=== PATIENT | female | born 1950 | race Caucasian/White ===

== ENCOUNTER 2017-11-04 10:31 | Observation (INO) | payer MEDICARE ==
[2017-11-04] VITALS (10 sets, daily range): BP systolic 103–141; BP diastolic 59–71; PULSE 73–87; RESP 16–20; TEMP 97.8–98.5; O2SAT 95–97
[~2017-11-04] VITALS: Ht 152.4 cm; Wt 80.3 kg
[~2017-11-04 10:31] MED LIST: AGGR20025 PO; ASPI81 PO; CALCCHW25 PO; CELE200 PO; CLON1 PO; CULT10CA2 PO; DENO60P SC; DEXI30CA2 PO; EFFE150C PO; EPIP0.3I IM; METF-324 PO; MIRA0.12 PO; MONT10TA2 PO; OMEG1CAP53 PO; PERC5TAB12 PO; PREG100 PO; QUIN20 PO; RELP40TA PO; RESV100C PO; SIMV5TAB32 PO; SUPETAB PO
--- NOTE | 2017-11-04 11:55 | PD ---
HPI Chief Complaint: Musculoskeletal Complaint Time Seen by Provider: 11:47 Travel History International Travel<30 days: No Contact w/Intl Traveler<30days: No Traveled to known affect area: No History of Present Illness HPI Patient is a 67-year-old female history of bus trip to [place] recently presents emergency department with calf pain isolated to the posterior lateral calf on the right. Patient denies any swelling. Denies any injury. She states that they did get out. The rest area walked around some she is worried that she might have a blood clot. She has a secondary complaint of cough productive of green sputum for the past few days. No shortness of breath not on any blood thinners no nausea no vomiting. She has never had any blood clots before. Patient has a tertiary complaint of chest discomfort and tightness which she states is been going on for the past day or so. States it worsens when she moves, radiates in her left arm she has a history of diabetes. She has not tried anything for her pain. symptoms for the past 2 days, constant, associated signs and symptoms in context as above/. 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") Headaches: Yes Hepatitis: No Hiatal Hernia: No Hypertension: Yes Kidney Stones: Yes Musculoskeletal: Yes (COMPRESSION FRACTURES X3, RIGHT ROTATOR CUFF) Respiratory: Yes (SLEEP APNEA/ C-PAP, ASTHMA) Migraines: Yes Pneumonia: Yes Sleep Apnea: Yes Thyroid Disease: No ?: Not Menopausal: Yes : 0 Para: 0 Miscarriage: 0 : 0 Ovarian Cysts: Yes ("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") Past Surgical History Abdominal Surgery: Yes (hernia) Appendectomy: Yes Cholecystectomy: Yes Eye Surgery: Yes (cataract, DETACHED RETINA RIGHT EYE) Oral Surgery: Yes (T & A) Pacemaker: No Tonsillectomy: Yes Other Surgery: Yes (UMBILICAL HERNIA) Social History Alcohol Use: No Tobacco Use: No Substance Use: No Allergies-Medications (Allergen,Severity, Reaction): Coded Allergies: diatrizoate meglumine (Unverified Adverse Reaction, Severe, FACIAL SWELLING, 11/04/17) PATIENT HAS TO BE PREMEDICATED WITH PREDNISONE AND BENADRYL gadobenic acid (Unverified Adverse Reaction, Severe, FACIAL SWELLING, ) PATIENT HAS TO BE PREMEDICATED WITH PREDNISONE AND BENADRYL gadodiamide (Unverified Adverse Reaction, Severe, FACIAL SWELLING, 11/04/17) PATIENT HAS TO BE PREMEDICATED WITH PREDNISONE AND BENADRYL gadoteridol (Unverified Adverse Reaction, Severe, FACIAL SWELLING, 11/04/17) PATIENT HAS TO BE PREMEDICATED WITH PREDNISONE AND BENADRYL iodixanol (Unverified Adverse Reaction, Severe, FACIAL SWELLING, 11/04/17) PATIENT HAS TO BE PREMEDICATED WITH PREDNISONE AND BENADRYL iohexol (Unverified Adverse Reaction, Severe, FACIAL SWELLING, 11/04/17) PATIENT HAS TO BE PREMEDICATED WITH PREDNISONE AND BENADRYL levofloxacin (Unverified Adverse Reaction, Severe, SEVERE FLUSHING, 11/04/17 ) Reported Meds & Prescriptions Reported Meds & Active Scripts Active Reported Oxycodone (Oxycodone HCl) 5 Mg Cap 5 Mg PO Q6H PRN Vitamin B Complex (B-Complex Vitamins) 1 Tab 1 Tab PO DAILY Lipitor (Atorvastatin Calcium) 40 Mg Tab 40 Mg PO HS Quinapril (Quinapril HCl) 5 Mg Tab 20 Mg PO BID Plavix (Clopidogrel Bisulfate) 75 Mg Tab 75 Mg PO DAILY Metformin (Metformin HCl) 500 Mg Tab 500 Mg PO BIDPC Mirapex (Pramipexole Dihydrochloride) 0.25 Mg Tab 0.25 Mg PO BID PRN Review of Systems Except as stated in HPI: all other systems reviewed are Neg Physical Exam Narrative GENERAL: Well-developed well-nourished in obvious distress SKIN: Focused skin assessment warm/dry. HEAD: Atraumatic. Normocephalic. EYES: Pupils equal and round. No scleral icterus. No injection or drainage. ENT: No nasal bleeding or discharge. Mucous membranes pink and moist. TMs clear bilaterally, oropharynx clear moist NECK: Trachea midline. No JVD. CARDIOVASCULAR: Regular rate and rhythm. No murmur appreciated. RESPIRATORY: No accessory muscle use. Clear to auscultation. Breath sounds equal bilaterally. GASTROINTESTINAL: Abdomen soft, non-tender, nondistended. Hepatic and splenic margins not palpable. MUSCULOSKELETAL: No obvious deformities. No clubbing. No cyanosis. No edema. I see no swelling of bilateral lower extremities, no cordlike structure, Homans sign negative. She does have some minimal tenderness over the area described in the HPI. See no bruising no bony tenderness. 2+ bilateral pulses in all 4 extremities. NEUROLOGICAL: Awake and alert. No obvious cranial nerve deficits. Motor grossly within normal limits. Normal speech. PSYCHIATRIC: Appropriate mood and affect; insight and judgment normal. Data Data Last Documented VS Vital Signs Date Time Temp Pulse Resp B/P (MAP) Pulse Ox O2 Delivery O2 Flow Rate FiO2 11/04/17 14:03 83 18 117/59 (78) 96 Room Air 11/04/17 10:50 98.5 Orders Orders Basic Metabolic Panel (Bmp) (11/04/17 11:52) Complete Blood Count With Diff (11/04/17 11:52) Prothrombin Time / Inr (Pt) (11/04/17 11:52) Act Partial Throm Time (Ptt) (11/04/17 11:52) Chest, Single Ap (11/04/17 11:52) Ecg Monitoring (11/04/17 11:52) Iv Access Insert/Monitor (11/04/17 11:52) Oximetry (11/04/17 11:52) Oxygen Administration (11/04/17 11:52) Sodium Chloride 0.9% Flush (Ns Flush) (11/04/17 12:00) Us Leg Venous Doppler (11/04/17 11:52) Ibuprofen (Motrin) (11/04/17 12:00) Electrocardiogram (11/04/17 ) Nitroglycerin Sl (Nitrostat Sl) (11/04/17 13:00) Aspirin Chew (Aspirin Chew) (11/04/17 13:00) Troponin I (11/04/17 13:04) Admit Order (Ed Use Only) (11/04/17 ) Labs Laboratory Tests Test 11/04/17 12:10 11/04/17 12:15 Troponin I LESS THAN 0.02 NG/ML White Blood Count 6.5 TH/MM3 Red Blood Count 3.79 MIL/MM3 Hemoglobin 10.6 GM/DL Hematocrit 31.6 % Mean Corpuscular Volume 83.4 FL Mean Corpuscular Hemoglobin 28.0 PG Mean Corpuscular Hemoglobin Concent 33.6 % Red Cell Distribution Width 16.3 % Platelet Count 341 TH/MM3 Mean Platelet Volume 7.2 FL Neutrophils (%) (Auto) 62.0 % Lymphocytes (%) (Auto) 18.2 % Monocytes (%) (Auto) 13.1 % Eosinophils (%) (Auto) 6.0 % Basophils (%) (Auto) 0.7 % Neutrophils # (Auto) 4.0 TH/MM3 Lymphocytes # (Auto) 1.2 TH/MM3 Monocytes # (Auto) 0.9 TH/MM3 Eosinophils # (Auto) 0.4 TH/MM3 Basophils # (Auto) 0.0 TH/MM3 CBC Comment DIFF FINAL Differential Comment Prothrombin Time 9.8 SEC Prothromb Time International Ratio 1.0 RATIO Activated Partial Thromboplast Time 24.1 SEC Blood Urea Nitrogen 16 MG/DL Creatinine 1.00 MG/DL Random Glucose 94 MG/DL Calcium Level 9.4 MG/DL Sodium Level 139 MEQ/L Potassium Level 4.3 MEQ/L Chloride Level 107 MEQ/L Carbon Dioxide Level 26.3 MEQ/L Anion Gap 6 MEQ/L Estimat Glomerular Filtration Rate 56 ML/MIN [facility] Medical Decision Making Medical Screen Exam Complete: Yes Emergency Medical Condition: Yes Differential Diagnosis DVT, PE unlikely, ACS unlikely, ND, cough, congestion. Narrative Course Patient room to the emergency department with multiple complaints, DVT study negative, basic labs reassuring, EKG and troponin reassuring as well. Patient does have risk factors for ACS and has no credit products officer or to follow-up with. She has never had a stress test before. Discussed with her that she should consider staying to have a cardiac observation done even though she is atypical presentation and she is agreeable. Discussed with Dr. Rizvi for chest pain center admission further workup per Dr. Rizvi's recommendations. After excluded from cardiac standpoint can be discharged to follow-up with a primary care physician or the [facility]. Diagnosis Primary Impression: Chest pain Admitting Information Admitting Physician Requests: Observation Condition: Stable Phong Cheema MD Nov 04, 2017 11:55
[2017-11-04] MEDS ORDERED: SODIUM CHLORIDE 0.9% FLUSH 10 ML FLUSH IVF PRN (12:00)
[2017-11-04] MEDS ORDERED: IBUPROFEN 400 MG TAB PO ONE (12:00)
--- NOTE | 2017-11-04 12:09 | RADRPT ---
EXAM DATE/TIME: 11/04/2017 11:59 [facility] COMPARISON: No previous studies available for comparison. INDICATIONS : Cough, short of breath, chest pain MEDICAL HISTORY : Diabetes mellitus type II. Hypertension SURGICAL HISTORY : None. ENCOUNTER: Initial ACUITY: 4 - 6 days PAIN SCORE: 4/10 LOCATION: Bilateral chest FINDINGS: Cardiomegaly with mild interstitial edema. There is no other consolidation. There is no pleural eff usion. The portion of the bony skeleton visualized is unremarkable. CONCLUSION: Cardiomegaly with probable mild failure Caesar Jacobs MD FACR on November 04, 2017 at 12:08 Board Certified Radiologist. This report was verified electronically.
[2017-11-04] MEDS ORDERED: QUIN5TAB6 PO (12:10)
[2017-11-04] MEDS ORDERED: PLAV75TA29 PO (12:10)
[2017-11-04] MEDS ORDERED: MIRA0.25 PO (12:10)
[2017-11-04] MEDS ORDERED: METF500T PO (12:10)
[2017-11-04 12:28] LABS: BASOPHIL % 0.7 % (0.0-2.0); EOSINOPHIL # 0.4 TH/MM3 (0-0.4); HEMATOCRIT 31.6 % (35.0-46.0); HEMOGLOBIN 10.6 GM/DL (11.6-15.3); LYMPH % 18.2 % (9.0-44.0); LYMPHOCYTE # 1.2 TH/MM3 (1.0-4.8); MEAN CELL VOLUME 83.4 FL (80.0-100.0); MEAN CORPUSCULAR HGB CONC 33.6 % (32.0-36.0); MEAN PLATELET VOLUME 7.2 FL (7.0-11.0); MONO % 13.1 % (0.0-8.0); MONOCYTE # 0.9 TH/MM3 (0-0.9); PLATELET COUNT 341 TH/MM3 (150-450); RED BLOOD COUNT 3.79 MIL/MM3 (4.00-5.30); RED CELL DISTRIBUTION WIDTH 16.3 % (11.6-17.2); WHITE BLOOD COUNT 6.5 TH/MM3 (4.0-11.0)
[2017-11-04] MEDS ORDERED: VITATAB11 PO (12:30)
[2017-11-04] MEDS ORDERED: LIPI40TA PO (12:30)
[2017-11-04] MEDS ORDERED: OXYC1CAP PO (12:30)
[2017-11-04 12:40] LABS: CALCIUM 9.4 MG/DL (8.5-10.1); PROTHROMBIN TIME - PATIENT 9.8 SEC (9.8-11.6)
--- NOTE | 2017-11-04 12:40 | RADRPT ---
EXAM DATE/TIME: 11/04/2017 12:18 [facility] COMPARISON: No previous studies available for comparison. INDICATIONS : Right leg swelling. MEDICAL HISTORY : Stroke. Hypercholesterolemia. Hypertension. Anticoagulant therapy. Asthma. Sleep apnea. Gastroesop hageal reflux disorder. Ovarian cysts. Kidney stones. Fibromyalgia. Depression. Anxiety. Diabetes. SURGICAL HISTORY : Tonsillectomy. Appendectomy. Cholecystectomy. Bilateral cataract surgery. Cardiac catheterization. U mbilical hernia repair. ENCOUNTER: Initial ACUITY: 4 - 6 days PAIN SCORE: 4/10 LOCATION: Right leg. TECHNIQUE: Venous ultrasound of the leg was performed from the inguinal ligament to the proximal calf. Real-kelsea e, color Doppler and spectral tracing, compression and augmentation techniques were used. FINDINGS: There is normal compressibility of the deep venous system from the inguinal region to the proximal ca lf. No echogenic clot is seen in the lumen of the common femoral, femoral, popliteal, and posterior tibial veins. There is a normal response of the venous system to proximal and distal augmentation an d respiration. CONCLUSION: Normal examination. Michael Rios MD on November 04, 2017 at 12:39 Board Certified Radiologist. This report was verified electronically.
[2017-11-04 12:41] LABS: BICARBONATE 26.3 MEQ/L (21.0-32.0)
[2017-11-04] MEDS ORDERED: NITROGLYCERIN 0.4 MG SL 25 TABS/BTL SL ONE (13:00)
[2017-11-04] MEDS ORDERED: ASPIRIN 81 MG CHEW TAB CHEW ONE (13:00)
[2017-11-04] MEDS ORDERED: IOHEXOL 350 MG/ML 50 ML BTL (for Cath Lab) OTHER ONE (14:29)
[2017-11-04] MEDS ORDERED: DEXTROSE 50% IN WATER 50 ML VIAL(D50) IV PUSH PRN (14:30)
[2017-11-04] MEDS ORDERED: GLUCAGON 1 MG/ML VIAL OTHER PRN (14:30)
[2017-11-04] MEDS ORDERED: NITROGLYCERIN 0.4 MG SL 25 TABS/BTL SL PRN (14:30)
[2017-11-04] MEDS ORDERED: SODIUM CHLORIDE 0.9% FLUSH 10 ML FLUSH IV FLUSH PRN (14:30)
[2017-11-04] MEDS ORDERED: MORPHINE SULFATE 4 MG/ML INJ IV PUSH PRN (15:00)
[2017-11-04] MEDS ORDERED: ONDANSETRON HCL 4 MG/2 ML VIAL IV PUSH PRN (15:00)
--- NOTE | 2017-11-04 15:11 | HHI.HP ---
HPI Service [facility] Primary Care Physician Radha Posada DO Admission Diagnosis Chest Pain Diagnoses: (1) Chest pain Diagnosis: Principal (2) Claudication Diagnosis: Principal Chief Complaint: Chest pain, calf pain Travel History International Travel<30 Days: No Contact w/Intl Traveler <30 Da: No Traveled to Known Affected Are: No History of Present Illness 67-year-old female with known history of hypertension, irregular heart rate, hyperlipidemia, diabetes, compression fractures, who presented to hospital with multiple symptoms. She states that for the last week she's been experiencing at least 2 times a day a chest heaviness which she describes as a 5 /10 on a pain scale. It happens at rest and during exertion. And resolved on its own after a couple minutes. There is associated shortness of breath, dyspnea, diaphoresis, lightheadedness. Patient denies any nausea, vomiting, dizziness. Patient does have history of cardiac workup 10 years ago where she did undergo a stress test. She has not had any workup recently. Patient also was experiencing right calf pain whenever she is standing up and walking. When she sits down the pain does go away. Ultrasound performed which was unremarkable. Patient also admits experiencing cough with green phlegm production over the last day. Denies any fever, chills, runny nose, sore throat. Patient had workup done emergency department and was unremarkable. Is recommended by the ER physician that the patient be observed in the chest pain center for her chest discomfort. This was explained to the patient and she is in agreement. Review of Systems Constitutional: COMPLAINS OF: Diaphoretic episodes, Dizziness Respiratory: COMPLAINS OF: Shortness of breath Cardiovascular: COMPLAINS OF: Chest pain, Claudication Except as stated in HPI: all other systems reviewed are Neg Past Family Social History Past Medical History Hypertension Hyperlipidemia Diabetes type 2 Irregular heart rate Compression fractures Neuroma History of right detached retina Obstructive sleep apnea Past Surgical History Cholecystectomy Umbilical hernia. Tonsillectomy Cataract surgery Right rotator cuff surgery Reported Medications Reported Meds & Active Scripts Active Reported Oxycodone (Oxycodone HCl) 5 Mg Cap 5 Mg PO Q6H PRN Vitamin B Complex (B-Complex Vitamins) 1 Tab 1 Tab PO DAILY Lipitor (Atorvastatin Calcium) 40 Mg Tab 40 Mg PO HS Quinapril (Quinapril HCl) 5 Mg Tab 20 Mg PO BID Plavix (Clopidogrel Bisulfate) 75 Mg Tab 75 Mg PO DAILY Metformin (Metformin HCl) 500 Mg Tab 500 Mg PO BIDPC Mirapex (Pramipexole Dihydrochloride) 0.25 Mg Tab 0.25 Mg PO BID PRN Allergies: Coded Allergies: diatrizoate meglumine (Unverified Adverse Reaction, Severe, FACIAL SWELLING, 11/04/17) PATIENT HAS TO BE PREMEDICATED WITH PREDNISONE AND BENADRYL gadobenic acid (Unverified Adverse Reaction, Severe, FACIAL SWELLING, ) PATIENT HAS TO BE PREMEDICATED WITH PREDNISONE AND BENADRYL gadodiamide (Unverified Adverse Reaction, Severe, FACIAL SWELLING, 11/04/17) PATIENT HAS TO BE PREMEDICATED WITH PREDNISONE AND BENADRYL gadoteridol (Unverified Adverse Reaction, Severe, FACIAL SWELLING, 11/04/17) PATIENT HAS TO BE PREMEDICATED WITH PREDNISONE AND BENADRYL iodixanol (Unverified Adverse Reaction, Severe, FACIAL SWELLING, 11/04/17) PATIENT HAS TO BE PREMEDICATED WITH PREDNISONE AND BENADRYL iohexol (Unverified Adverse Reaction, Severe, FACIAL SWELLING, 11/04/17) PATIENT HAS TO BE PREMEDICATED WITH PREDNISONE AND BENADRYL levofloxacin (Unverified Adverse Reaction, Severe, SEVERE FLUSHING, 11/04/17 ) Family History Reviewed is significant for father at age 76 from heart attack. Mother at age 89 in generally good health Social History Patient denies any tobacco or illicit drugs. Does drink alcohol rarely Physical Exam Vital Signs Vital Signs Date Time Temp Pulse Resp B/P (MAP) Pulse Ox O2 Delivery O2 Flow Rate FiO2 11/04/17 14:03 83 18 117/59 (78) 96 Room Air 11/04/17 11:56 96 Room Air 11/04/17 11:56 Room Air 11/04/17 10:50 98.5 83 16 133/64 (87) 97 Physical Exam GENERAL: Well-developed, well-nourished, in no acute distress. alert and orientated HEENT: Head is normocephalic without any lesions or masses noted. Facial features are symmetric. Eyes: Pupils equal round reactive to light. Extraocular muscles are intact. Conjunctivae were clear. Oropharyngeal: Pharynx without any erythema edema. Tongue is midline without deviation. Buccal mucosa is moist without any masses or lesions NECK: Supple without any masses. Trachea midline no deviation. No JVD, no bruits are appreciated CARDIAC: Regular rhythm, regular rate. S1/S2 are heard. No murmurs gallops or rubs. LUNGS: Clear to auscultation bilaterally. No wheeze, rhonchi or rales. No use of accessory muscles on inspiration or expiration. ABDOMEN: Soft, nontender. Nondistended. Bowel sounds heard in all 4 quadrants. No organomegaly or masses. Negative rebound, negative guarding EXTREMITIES: No edema, pulses are equal bilaterally. No cyanosis or clubbing NEUROLOGY: Mood and affect appear appropriate. Cranial nerves II through XII grossly intact. Muscle strength 5/5 in upper and lower extremities bilaterally. Deep tendon reflexes are 2+ in upper and lower extremities bilaterally. Laboratory Laboratory Tests Test 11/04/17 12:10 11/04/17 12:15 Troponin I LESS THAN 0.02 White Blood Count 6.5 Red Blood Count 3.79 Hemoglobin 10.6 Hematocrit 31.6 Mean Corpuscular Volume 83.4 Mean Corpuscular Hemoglobin 28.0 Mean Corpuscular Hemoglobin Concent 33.6 Red Cell Distribution Width 16.3 Platelet Count 341 Mean Platelet Volume 7.2 Neutrophils (%) (Auto) 62.0 Lymphocytes (%) (Auto) 18.2 Monocytes (%) (Auto) 13.1 Eosinophils (%) (Auto) 6.0 Basophils (%) (Auto) 0.7 Neutrophils # (Auto) 4.0 Lymphocytes # (Auto) 1.2 Monocytes # (Auto) 0.9 Eosinophils # (Auto) 0.4 Basophils # (Auto) 0.0 CBC Comment DIFF FINAL Differential Comment Prothrombin Time 9.8 Prothromb Time International Ratio 1.0 Activated Partial Thromboplast Time 24.1 Blood Urea Nitrogen 16 Creatinine 1.00 Random Glucose 94 Calcium Level 9.4 Sodium Level 139 Potassium Level 4.3 Chloride Level 107 Carbon Dioxide Level 26.3 Anion Gap 6 Estimat Glomerular Filtration Rate 56 Result Diagram: 11/04/17 1215 11/04/17 1215 Imaging Last Impressions Lower Extremity Ultrasound 11/04/17 1152 Signed Impressions: Service Date/Time: Saturday, November 04, 2017 12:18 - CONCLUSION: Normal examination. Michael Rios MD Chest X-Ray 11/04/17 115 Signed Impressions: Service Date/Time: Saturday, November 04, 2017 11:59 - CONCLUSION: Cardiomegaly with probable mild failure Caesar Jacobs MD FACR Caprini VTE Risk Assessment Caprini VTE Risk Assessment: Mod/High Risk (score >= 2) Caprini Risk Assessment Model Point Value = 1 Point Value = 2 Point Value = 3 Point Value = 5 Age 41-60 Minor surgery BMI > 25 kg/m2 Swollen legs Varicose veins or History of unexplained or recurrent spontaneous Oral contraceptives or hormone replacement Sepsis (< 1 month) Serious lung disease, including pneumonia (< 1 month) Abnormal pulmonary function Acute myocardial infarction Congestive heart failure (< 1 month) History of inflammatory bowel disease Medical patient at bed rest Age 61-74 Arthroscopic surgery Major open surgery (> 45 min) Laparoscopic surgery (> 45 min) Malignancy Confined to bed (> 72 hours) Immobilizing plaster cast Central venous access Age >= 75 History of VTE Family history of VTE Factor V Leiden Prothrombin [id number] Lupus anticoagulant Anticardiolipin antibodies Elevated serum homocysteine Heparin-induced thrombocytopenia Other congenital or acquired thrombophilia Stroke (< 1 month) Elective arthroplasty Hip, pelvis, or leg fracture Acute spinal cord injury (< 1 month) Prophylaxis Regimen Total Risk Factor Score Risk Level Prophylaxis Regimen 0-1 Low Early ambulation 2 Moderate Order ONE of the following: *Sequential Compression Device (SCD) *Heparin 5000 units SQ BID 3-4 Higher Order ONE of the following medications: *Heparin 5000 units SQ TID *Enoxaparin/Lovenox 40 mg SQ daily (WT < 150 kg, CrCl > 30 mL/min) *Enoxaparin/Lovenox 30 mg SQ daily (WT < 150 kg, CrCl > 10-29 mL/min) *Enoxaparin/Lovenox 30 mg SQ BID (WT < 150 kg, CrCl > 30 mL/min) AND/OR *Sequential Compression Device (SCD) 5 or more Highest Order ONE of the following medications: *Heparin 5000 units SQ TID (Preferred with Epidurals) *Enoxaparin/Lovenox 40 mg SQ daily (WT < 150 kg, CrCl > 30 mL/min) *Enoxaparin/Lovenox 30 mg SQ daily (WT < 150 kg, CrCl > 10-29 mL/min) *Enoxaparin/Lovenox 30 mg SQ BID (WT < 150 kg, CrCl > 30 mL/min) AND *Sequential Compression Device (SCD) Assessment and Plan Assessment and Plan 67-year-old female who presented to hospital with a one-week history of 2 times a day chest discomfort with associated shortness of breath, diaphoresis, lightheadedness, claudication Chest pain Patient with increased risk factors to include age, hypertension, hyperlipidemia, diabetes, family history of heart disease Will rule patient out for acute coronary event with serial cardiac enzymes which are negative at this time We'll continue to do serial EKGs which have been reviewed so far and does not indicate any acute abnormality or ST elevations Will pursue myocardial perfusion test in the morning if patient ruled out for acute coronary event We'll continue aspirin, nitroglycerin as needed, pain control Continue to monitor telemetry Calf pain, possible claudication Worse with ambulation, resolved with rest Ultrasound does not indicate any acute abnormality or DVT Diabetes Accu-Cheks with sliding scale insulin Hypertension, hyperlipidemia Continue home medications DVT prevention Subcutaneous heparin Branden Bashir Nov 04, 2017 15:11
[2017-11-04] MEDS: INSULIN ASPART SUPPLEMENTAL SCALE SQ SCH ×2 (17:00→22:23)
[2017-11-04 18:02] LABS: TROPONIN I LESS THAN 0.02 NG/ML (0.02-0.05)
[2017-11-04] MEDS ORDERED: PRAMIPEXOLE DIHYDROCHLORIDE 0.25 MG TAB PO PRN (21:00)
[2017-11-04] MEDS: ATORVASTATIN 40 MG TAB PO SCH (22:18)
[2017-11-04] MEDS: SODIUM CHLORIDE 0.9% FLUSH 10 ML FLUSH IV FLUSH SCH (22:18)
[2017-11-04] MEDS: HEPARIN SODIUM - SQ 10,000 UNITS/ML VIAL SQ SCH (22:19)
[2017-11-04] MEDS: LISINOPRIL 20 MG TAB PO SCH (22:40)
[2017-11-04] MEDS: ACETAMINOPHEN 500 MG CPLT PO PRN (23:03)
[2017-11-05] VITALS (8 sets, daily range): BP systolic 113–145; BP diastolic 56–87; PULSE 72–84; RESP 16–20; TEMP 97.1–98.1; O2SAT 94–98
[2017-11-05] MEDS: INSULIN ASPART SUPPLEMENTAL SCALE SQ SCH ×4 (08:00→20:00)
[2017-11-05] MEDS: HEPARIN SODIUM - SQ 10,000 UNITS/ML VIAL SQ SCH ×2 (08:49→19:58)
[2017-11-05] MEDS: CLOPIDOGREL 75 MG TAB PO SCH (08:49)
[2017-11-05] MEDS: ASPIRIN 325 MG TAB PO SCH (08:49)
[2017-11-05] MEDS: SODIUM CHLORIDE 0.9% FLUSH 10 ML FLUSH IV FLUSH SCH ×2 (08:49→20:00)
[2017-11-05] MEDS: LISINOPRIL 20 MG TAB PO SCH ×2 (08:49→19:59)
--- NOTE | 2017-11-05 10:53 | RADRPT ---
EXAM DATE/TIME: 11/05/2017 08:55 [facility] COMPARISON: No previous studies available for comparison. INDICATIONS : Chest pain radiating to the left arm. Angina. DOSE: 27.1 mCi Tc99m Myoview at stress. 8.8 mCi Tc99m Myoview at rest. 0.4 mg Lexiscan STRESS SYMPTOMS: Chest pain and dyspnea. EJECTION FRACTION: 53% MEDICAL HISTORY : Diabetes mellitus type 2. Hypercholesterolemia. Gastroesophageal reflux disease. Hypertension. Stroke . SURGICAL HISTORY : Appendectomy. Tonsillectomy. Umbilical hernia repair. ENCOUNTER: Initial ACUITY: 2 days PAIN SCALE: 3/10 LOCATION: chest TECHNIQUE: The patient underwent pharmacologic stress with infusion of prescribed dose. Continuous ECG tracing was monitored during stress. Gated SPECT imaging was performed after stress and conventional SPECT i maging was performed at rest. The examination was performed on a SPECT/CT scanner, both attenuation and non-corrected datasets were reviewed. FINDINGS: On the stress images the best perfused myocardium is the anterior lateral wall followed by the inferi or wall There is minimal redistribution in the high septal region extending towards the base. There is no fi xed defect to suggest infarction. Wall motion is normal across all regions. CONCLUSION: Minimal redistribution, borderline significant high septal region suggestive of ischemia. RISK CATEGORY: Low (<1% Annual Mortality Rate) Caesar Jacobs MD FACR on November 05, 2017 at 10:49 Board Certified Radiologist. This report was verified electronically.
--- NOTE | 2017-11-05 11:21 | HHI.PR ---
Subjective Remarks Patient seen and examined today for follow-up on chest pain. Patient has undergone nuclear stress test which was positive for signs of redistribution and ischemia. This was discussed with the patient extensively. Patient will require cardiology consult. Patient denies any recurrent chest discomfort or shortness of breath. Objective Vitals Vital Signs Date Time Temp Pulse Resp B/P (MAP) Pulse Ox O2 Delivery O2 Flow Rate FiO2 11/05/17 08:00 80 11/05/17 08:00 98.1 72 18 113/56 (75) 94 11/05/17 04:27 97.6 73 16 117/58 (77) 96 11/05/17 00:04 97.6 77 18 141/87 (105) 95 11/04/17 20:30 95 21 11/04/17 20:18 97.9 75 16 114/71 (85) 97 11/04/17 20:05 80 11/04/17 16:18 96 21 11/04/17 16:07 87 11/04/17 16:00 97.8 73 20 141/67 (91) 97 11/04/17 15:49 82 96 11/04/17 15:20 78 19 123/62 (82) 95 Room Air 11/04/17 14:45 84 18 103/64 (77) 95 Room Air 11/04/17 14:03 83 18 117/59 (78) 96 Room Air 11/04/17 11:56 96 Room Air 11/04/17 11:56 Room Air I/O 11/04/17 11/04/17 11/04/17 11/05/17 11/05/17 11/05/17 07:00 15:00 23:00 07:00 15:00 23:00 Intake Total 120 ml Output Total 200 ml 1900 ml Balance -80 ml -1900 ml Intake Oral 120 ml Output Urine Total 200 ml 1900 ml # Bowel Movements 0 0 Result Diagram: 11/04/17 1215 11/04/17 1215 Imaging Last Impressions Lower Extremity Ultrasound 11/04/17 1152 Signed Impressions: Service Date/Time: Saturday, November 04, 2017 12:18 - CONCLUSION: Normal examination. Michael Rios MD Chest X-Ray 11/04/17 1153 Signed Impressions: Service Date/Time: Saturday, November 04, 2017 11:59 - CONCLUSION: Cardiomegaly with probable mild failure Caesar Jacobs MD FACR Objective Remarks GENERAL: Well-developed, well-nourished, in no acute distress. alert and orientated HEENT: Head is normocephalic without any lesions or masses noted. Facial features are symmetric. Eyes: Extraocular muscles are intact. Conjunctivae were clear. NECK: Supple without any masses. Trachea midline no deviation. No JVD, CARDIAC: Regular rhythm, regular rate. S1/S2 are heard. No murmurs gallops or rubs. LUNGS: Clear to auscultation bilaterally. No wheeze, rhonchi or rales. No use of accessory muscles on inspiration or expiration. ABDOMEN: Soft, nontender. Nondistended. Bowel sounds heard in all 4 quadrants. No organomegaly or masses. Negative rebound, negative guarding EXTREMITIES: No edema, pulses are equal bilaterally. No cyanosis or clubbing NEUROLOGY: Mood and affect appear appropriate. Cranial nerves II through XII grossly intact. Moving all extremities, speech is clear Urinary Catheter: No Vascular Central Line Catheter: No A/P Assessment and Plan 67-year-old female who presented to hospital with a one-week history of 2 times a day chest discomfort with associated shortness of breath, diaphoresis, lightheadedness, claudication Chest pain Patient with increased risk factors to include age, hypertension, hyperlipidemia, diabetes, family history of heart disease Patient was ruled out for acute coronary event with serial cardiac enzymes have remained negative. Serial EKGs were performed which did not indicate any changes Myocardial perfusion study was performed which did show minimal redistribution defects with possible ischemia Continue aspirin, Plavix, nitroglycerin as needed, pain control Add beta-lashell, Nitropaste, defer heparin to market sales manager Consult cardiology for recommendations Continue to monitor telemetry Calf pain, possible claudication Worse with ambulation, resolved with rest Ultrasound does not indicate any acute abnormality or DVT Diabetes Accu-Cheks with sliding scale insulin Hypertension, hyperlipidemia Continue home medications DVT prevention Subcutaneous heparin Branden Bashir Nov 05, 2017 11:21
[2017-11-05] MEDS: NITROGLYCERIN 2% OINT 1 GM PACKET TOPICAL SCH ×2 (13:19→18:00)
[2017-11-05] MEDS: CARVEDILOL 3.125 MG TAB PO SCH ×2 (13:23→19:59)
[2017-11-05] MEDS: ACETAMINOPHEN 500 MG CPLT PO PRN ×2 (13:23→19:59)
[2017-11-05] MEDS ORDERED: REGADENOSON INJ 0.4 MG/5 ML SYR IV ONE (14:29)
--- NOTE | 2017-11-05 16:16 | MB ---
cc: Greg Polk MD DATE OF CONSULT: REASON FOR CONSULTATION: Chest pain. HISTORY OF PRESENT ILLNESS: The patient is a 67-year-old woman who sees my partner, Dr. Crook, for a fairly long history of atypical chest pain with a normal cardiac catheterization about 8 years ago and nonischemic stress test several years ago. Patient says she has had chest pain and shortness of breath for about a year, progressing to the point where she felt she needed to be evaluated. Of note, the patient is extremely agitated. As I walk in, she immediately begins telling me how dissatisfied she is with the staff, nursing, and she feels like she is getting mixed messages. I tried my hardest to explain the situation to the patient, yet she remained dissatisfied with any explanation I had. I discussed that I had reviewed all of the patient's charting from the office as well as her results from in the hospital, but the patient was not particularly interested in my opinion. Though I did explain that I think given the normal catheterization in the past with nonischemic nuclear stress testing since, combined with her only minimally abnormal stress test, she would likely be a good candidate for a trial of medical therapy. The patient was not receptive to this advice or discussion. PAST MEDICAL HISTORY: Atypical chest pain, normal cardiac catheterization approximately 2008, hypertension, hyperlipidemia, obesity. HOME MEDICATIONS: Include Lipitor, quinapril, Plavix, metformin. ALLERGIES: MULTIPLE. PLEASE SEE THE CHART. PHYSICAL EXAMINATION: Afebrile, pulse of 76, respiratory rate 18, BP 137/67, satting 95% on 2 L. GENERAL: Agitated obese woman who did become more receptive to discussion towards the end of our encounter. NECK: No JVD. LUNGS: Clear to auscultation bilaterally. CARDIOVASCULAR: Regular rate and rhythm, no murmurs appreciated. ABDOMEN: Benign. EXTREMITIES: No edema. LABORATORY DATA: White count 6.5, hematocrit 31.6, platelet 341. Sodium 139, potassium 4.3, chloride 107, bicarb 26.3, BUN 16, creatinine 1.0. Cardiac enzymes are negative x 2. EKG shows sinus rhythm, with no significant ST or T-wave changes, but there are nonspecific lateral changes. Chest x-ray showed possible mild cardiomegaly. Nuclear stress test showed minimal redistribution, borderline significant in the high septal region. IMPRESSIONS: Atypical chest pain. The patient has had off and on chest pain for a year and likely much longer than that, given my review of the chart. She has a family history of coronary disease, and she said her dad of a massive myocardial infarction, which seems to weight heavily on her mind frequently. I did discuss a trial of medical therapy given the fairly unimpressive nuclear stress test reading, but she is clearly uncomfortable going home without a definitive look at her coronary arteries, so I feel I have no choice but to recommend a cardiac catheterization. I will make the necessary arrangements and one of my partners will plan for this tomorrow. Thank you, again, for the opportunity to participate in this patient's care. MD DONNA Piper/MONTY , 03:54 PM , 04:15 PM
[2017-11-05] MEDS: ATORVASTATIN 40 MG TAB PO SCH (19:59)
[2017-11-06] VITALS (25 sets, daily range): BP systolic 112–145; BP diastolic 54–76; PULSE 64–86; RESP 16–18; TEMP 97.6–98.8; O2SAT 96–98
[2017-11-06] MEDS: NITROGLYCERIN 2% OINT 1 GM PACKET TOPICAL SCH ×5 (00:21→23:43)
[2017-11-06] MEDS ORDERED: SODIUM CHLOR 0.9% 1000 ML INJ 1,000 ML IV SCH (07:29)
[2017-11-06] MEDS ORDERED: diphenhydrAMINE HCL 50 MG CAP PO SCH ×2 (07:30→13:00)
[2017-11-06] MEDS ORDERED: ASPIRIN 325 MG TAB PO SCH ×2 (07:30→13:00)
[2017-11-06] MEDS ORDERED: DIAZEPAM 5 MG TAB PO SCH ×2 (07:30→13:00)
[2017-11-06] MEDS: INSULIN ASPART SUPPLEMENTAL SCALE SQ SCH ×4 (08:00→21:35)
[2017-11-06] MEDS: LISINOPRIL 20 MG TAB PO SCH ×2 (09:55→21:35)
[2017-11-06] MEDS: ASPIRIN 325 MG TAB PO SCH (09:55)
[2017-11-06] MEDS: CARVEDILOL 3.125 MG TAB PO SCH ×2 (09:56→21:34)
[2017-11-06] MEDS: CLOPIDOGREL 75 MG TAB PO SCH (09:56)
[2017-11-06] MEDS: HEPARIN SODIUM - SQ 10,000 UNITS/ML VIAL SQ SCH ×2 (09:56→21:35)
[2017-11-06] MEDS: SODIUM CHLORIDE 0.9% FLUSH 10 ML FLUSH IV FLUSH SCH ×2 (09:57→21:34)
[2017-11-06] MEDS ORDERED: predniSONE 20 MG TAB PO ONE ×2 (13:00→22:00)
--- NOTE | 2017-11-06 13:10 | PD.CARD.PN ---
Subjective Subjective Remarks Last chest pain Sunday Objective Medications Current Medications Medications (Trade) Dose Ordered Sig/Kassie Route Start Time Stop Time Status Last Admin (NS Flush) 2 ml UNSCH PRN IV FLUSH 11/04/17 14:30 (NS Flush) 2 ml BID IV FLUSH 11/04/17 21:00 11/06/17 09:57 (Tylenol) 500 mg Q4H PRN PO 11/04/17 15:00 11/05/17 19:59 (Morphine Inj) 2 mg Q4H PRN IV PUSH 11/04/17 15:00 (Zofran Inj) 4 mg Q6H PRN IV PUSH 11/04/17 15:00 (Nitrostat Sl) 0.4 mg Q5M PRN SL 11/04/17 14:30 (Aspirin) 325 mg DAILY PO 11/05/17 09:00 11/06/17 09:55 (Lipitor) 40 mg HS PO 11/04/17 21:00 11/05/17 19:59 (Plavix) 75 mg DAILY PO 11/05/17 09:00 11/06/17 09:56 (Roxicodone) 5 mg Q6HR PRN PO 11/04/17 18:00 (Mirapex) 0.25 mg BID PRN PO 11/04/17 21:00 (Prinivil) 20 mg BID PO 11/04/17 21:00 11/06/17 09:55 (D50w (Vial) Inj) 50 ml UNSCH PRN IV PUSH 11/04/17 14:30 (Glucagon Inj) 1 mg UNSCH PRN OTHER 11/04/17 14:30 (NovoLOG SUPPLEMENTAL SCALE) 1 ACHS SLIDING SCALE SQ 11/04/17 17:00 (Heparin Inj) 5,000 units Q12HR SQ 11/04/17 21:00 11/06/17 09:56 (Nitroglycerin 2% Oint) 0.5 inch Q6HR TOPICAL 11/05/17 12:00 11/06/17 05:43 (Coreg) 3.125 mg Q12HR PO 11/05/17 12:00 11/06/17 09:56 Sodium Chloride 1,000 ml @ 100 mls/hr Q10H IV 11/06/17 07:29 11/11/17 07:28 (Aspirin) 325 mg [employer] PO 11/06/17 07:30 11/10/17 07:29 (Benadryl) 50 mg [employer] PO 11/06/17 07:30 11/10/17 07:29 (Valium) 5 mg [employer] PO 11/06/17 07:30 11/10/17 07:29 (Deltasone) 40 mg ONCE ONCE PO 11/06/17 13:00 11/06/17 13:01 UNV (Deltasone) 40 mg ONCE ONCE PO 11/06/17 22:00 11/06/17 22:01 UNV (Deltasone) 40 mg ONCE ONCE PO 11/07/17 07:00 11/07/17 07:01 UNV Vital Signs / I&O Vital Signs Date Time Temp Pulse Resp B/P (MAP) Pulse Ox O2 Delivery O2 Flow Rate FiO2 11/06/17 12:00 80 11/06/17 11:14 97.7 74 16 119/66 (83) 96 11/06/17 11:00 76 11/06/17 10:28 83 11/06/17 09:42 84 11/06/17 09:30 81 11/06/17 08:00 97.9 77 16 129/71 (90) 97 11/06/17 07:00 70 11/06/17 06:00 64 11/06/17 05:00 82 11/06/17 04:00 69 11/06/17 03:30 98.8 73 18 112/54 (73) 98 11/06/17 03:00 73 11/06/17 02:00 68 11/06/17 02:00 98.1 68 18 127/68 (87) 96 11/05/17 23:00 84 11/05/17 20:00 97.1 78 20 145/67 (93) 95 11/05/17 16:00 98.1 77 18 138/69 (92) 98 I/O 11/05/17 11/05/17 11/05/17 11/06/17 11/06/17 11/06/17 07:00 15:00 23:00 07:00 15:00 23:00 Intake Total 0 ml Output Total 1900 ml 500 ml Balance -1900 ml -500 ml Intake Oral 0 ml Output Urine Total 1900 ml 500 ml # Bowel Movements 0 0 Physical Exam Alert chest clear CV S1S2 RRR No edema Assessment and Plan Problem List: (1) Family history of coronary artery disease ICD Codes: Z82.49 - Family history of ischemic heart disease and other diseases of the circulatory system (2) Unstable angina pectoris ICD Codes: I20.0 - Unstable angina (3) Contrast media allergy ICD Codes: Z91.041 - Radiographic dye allergy status Plan: premedicate with prednisone. Cath tomorrow. Assessment and Plan I've obtianed informed consent for cath poss PCI in AM. Khris Crook MD Nov 06, 2017 13:10
--- NOTE | 2017-11-06 14:16 | HHI.PR ---
Subjective Remarks Follow-up for chest pain Patient stated that she feels good at the moment. Denies any chest pain, shortness of breathing, palpitation, lightheadedness dizziness. She did complain of some acid reflux after eating. Patient also refused insulin earlier. I explain to patient the purpose of insulin and why she is on treatment she stated that she will take insulin as directed. Otherwise no other complaints. Discussed case with patient's nurse. Objective Vitals Vital Signs Date Time Temp Pulse Resp B/P (MAP) Pulse Ox O2 Delivery O2 Flow Rate FiO2 11/06/17 13:00 81 11/06/17 12:00 84 11/06/17 12:00 80 11/06/17 11:14 97.7 74 16 119/66 (83) 96 11/06/17 11:00 76 11/06/17 10:28 83 11/06/17 09:42 84 11/06/17 09:30 81 11/06/17 08:00 97.9 77 16 129/71 (90) 97 11/06/17 07:00 70 11/06/17 06:00 64 11/06/17 05:00 82 11/06/17 04:00 69 11/06/17 03:30 98.8 73 18 112/54 (73) 98 11/06/17 03:00 73 11/06/17 02:00 68 11/06/17 02:00 98.1 68 18 127/68 (87) 96 11/05/17 23:00 84 11/05/17 20:00 97.1 78 20 145/67 (93) 95 11/05/17 16:00 98.1 77 18 138/69 (92) 98 I/O 11/05/17 11/05/17 11/05/17 11/06/17 11/06/17 11/06/17 07:00 15:00 23:00 07:00 15:00 23:00 Intake Total 0 ml Output Total 1900 ml 500 ml Balance -1900 ml -500 ml Intake Oral 0 ml Output Urine Total 1900 ml 500 ml # Bowel Movements 0 0 Result Diagram: 11/04/17 1215 11/04/17 1215 Objective Remarks GENERAL: in NAD SKIN: Warm and dry. HEAD: Normocephalic. EYES: No scleral icterus. No injection or drainage. NECK: Supple, trachea midline. No JVD or lymphadenopathy. CARDIOVASCULAR: Regular rate and rhythm without murmurs, gallops, or rubs. RESPIRATORY: Breath sounds equal bilaterally. No accessory muscle use. GASTROINTESTINAL: Abdomen soft, non-tender, nondistended. MUSCULOSKELETAL: No cyanosis, or edema. BACK: Nontender without obvious deformity. No CVA tenderness. Medications and IVs Current Medications Sodium Chloride (NS Flush) 2 ml UNSCH PRN IVF FLUSH AFTER USING IV ACCESS Last administered on 11/04/17 12:32; Start 11/04/17 at 12:00; Stop 11/05/17 at 11:12; Status DC Ibuprofen (Motrin) 400 mg ONCE ONCE PO Last administered on 11/04/17 12:31; Start 11/04/17 at 12:00; Stop 11/04/17 at 12:01; Status DC Nitroglycerin (Nitrostat Sl) 0.4 mg ONCE ONCE SL Last administered on 14:01; Start 11/04/17 at 13:00; Stop 11/04/17 at 13:01; Status DC Aspirin (Aspirin Chew) 324 mg ONCE ONCE CHEW Last administered on 11/04/17 14: 00; Start 11/04/17 at 13:00; Stop 11/04/17 at 13:01; Status DC Sodium Chloride (NS Flush) 2 ml UNSCH PRN IV FLUSH FLUSH AFTER USING IV ACCESS ; Start 11/04/17 at 14:30 Sodium Chloride (NS Flush) 2 ml BID IV FLUSH Last administered on 11/06/17 09: 57; Start 11/04/17 at 21:00 Acetaminophen (Tylenol) 500 mg Q4H PRN PO HEADACHE Last administered on 19:59; Start 11/04/17 at 15:00 Morphine Sulfate (Morphine Inj) 2 mg Q4H PRN IV PUSH PAIN SCALE 8 TO 10; Start 11/04/17 at 15:00 Ondansetron HCl (Zofran Inj) 4 mg Q6H PRN IV PUSH NAUSEA; Start 11/04/17 at 15: 00 Nitroglycerin (Nitrostat Sl) 0.4 mg Q5M PRN SL CHEST PAIN; Start 11/04/17 at 14: 30 Aspirin (Aspirin) 325 mg DAILY PO Last administered on 11/06/17 09:55; Start at 09:00 Atorvastatin Calcium (Lipitor) 40 mg HS PO Last administered on 11/05/17 19:59 ; Start 11/04/17 at 21:00 Clopidogrel Bisulfate (Plavix) 75 mg DAILY PO Last administered on 11/06/17 09: 56; Start 11/05/17 at 09:00 Oxycodone HCl (Roxicodone) 5 mg Q6HR PRN PO PAIN; Start 11/04/17 at 18:00 Pramipexole Dihydrochloride (Mirapex) 0.25 mg BID PRN PO RESTLESSNESS; Start at 21:00 Lisinopril (Prinivil) 20 mg BID PO Last administered on 11/06/17 09:55; Start 11/04/17 at 21:00 Dextrose (D50w (Vial) Inj) 50 ml UNSCH PRN IV PUSH HYPOGLYCEMIA-SEE COMMENTS; Start 11/04/17 at 14:30 Glucagon (Glucagon Inj) 1 mg UNSCH PRN OTHER HYPOGLYCEMIA-SEE COMMENTS; Start 11/04/17 at 14:30 Insulin Aspart (NovoLOG SUPPLEMENTAL SCALE) 1 ACHS SLIDING SCALE SQ ; Start 11/04/17 at 17:00 Heparin Sodium (Porcine) (Heparin Inj) 5,000 units Q12HR SQ Last administered on 11/06/17 09:56; Start 11/04/17 at 21:00 Regadenoson (Lexiscan Inj) 0.4 mg STK-MED ONCE IV Last administered on 09:10; Start 11/05/17 at 14:29; Stop 11/05/17 at 14:30; Status DC Nitroglycerin (Nitroglycerin 2% Oint) 0.5 inch Q6HR TOPICAL Last administered on 11/06/17 13:29; Start 11/05/17 at 12:00 Carvedilol (Coreg) 3.125 mg Q12HR PO Last administered on 11/06/17 09:56; Start 11/05/17 at 12:00 Sodium Chloride 1,000 ml @ 100 mls/hr Q10H IV ; Start 11/06/17 at 07:29; Stop at 12:57; Status DC Aspirin (Aspirin) 325 mg [employer] PO ; Start 11/06/17 at 07:30; Stop 11/10/17 at 07:29 Diphenhydramine HCl (Benadryl) 50 mg [employer] PO ; Start 11/06/17 at 07:30; Stop 11/10/17 at 07:29 Diazepam (Valium) 5 mg [employer] PO ; Start 11/06/17 at 07:30; Stop 11/10/17 at 07 :29 Prednisone (Deltasone) 40 mg ONCE ONCE PO Last administered on 11/06/17at 13:29 ; Start 11/06/17 at 13:00; Stop 11/06/17 at 13:01; Status DC Prednisone (Deltasone) 40 mg ONCE ONCE PO ; Start 11/06/17 at 22:00; Stop at 22:01 Prednisone (Deltasone) 40 mg ONCE ONCE PO ; Start 11/07/17 at 07:00; Stop at 07:01 Sodium Chloride 1,000 ml @ 100 mls/hr Q10H IV ; Start 11/06/17 at 12:49; Stop at 12:48 Aspirin (Aspirin) 325 mg [employer] PO ; Start 11/06/17 at 13:00; Stop 11/10/17 at 12:59 Diphenhydramine HCl (Benadryl) 50 mg [employer] PO ; Start 11/06/17 at 13:00; Stop 11/10/17 at 12:59 Diazepam (Valium) 5 mg [employer] PO ; Start 11/06/17 at 13:00; Stop 11/10/17 at 12 :59 A/P Problem List: (1) Chest pain ICD Code: R07.9 - Chest pain, unspecified (2) Claudication ICD Code: I73.9 - Peripheral vascular disease, unspecified Assessment and Plan 67-year-old female who presented to hospital with a one-week history of 2 times a day chest discomfort with associated shortness of breath, diaphoresis, lightheadedness, claudication Chest pain Patient with increased risk factors to include age, hypertension, hyperlipidemia, diabetes, family history of heart disease Patient was ruled out for acute coronary event with serial cardiac enzymes have remained negative. Myocardial perfusion study was performed which did show minimal redistribution defects with possible ischemia Continue aspirin, Plavix, nitroglycerin as needed, pain control on beta-lashell, Nitropaste, defer heparin to prescription benefit specialist Patient scheduled for cardiac catheterization tomorrow. Calf pain, possible claudication Worse with ambulation, resolved with rest Ultrasound does not indicate any acute abnormality or DVT Diabetes Accu-Cheks with sliding scale insulin. Patient stated that she will be compliant with treatment. Continue to hold metformin secondary to cardiac catheterization. Hypertension, hyperlipidemia Continue home medications DVT prevention Subcutaneous heparin Discharge Planning Patient scheduled for cardiac catheterization tomorrow. Keyla Liu MD Nov 06, 2017 14:16
[2017-11-06] MEDS: CALCIUM CARBONATE 500 MG CHEWABLE TAB CHEW SCH ×2 (15:07→21:34)
--- NOTE | 2017-11-06 16:09 | TR ---
Date Performed: 11/05/2017 Time Performed: 09:30:24 DOCTOR: Usha Anne DRUG LIST: CLINICAL HISTORY: REASON FOR TEST: Chest pain REASON FOR ENDING: OBSERVATION: CONCLUSION: Lexiscan stress test was performed under standard four minute protocol. Radionuclid e was injected one minute prior to ending the test. No electrocardiographic abormalities were present to suggest ischemia. Nuclear imaging and interpretation are pending. COMMENTS:
--- NOTE | 2017-11-06 16:10 | EKG ---
Date Performed: 11/04/2017 Time Performed: 13:13:18 PTAGE: 67 years EKG: Sinus rhythm WITH SINUS ARRHYTHMIA LOW QRS VOLTAGE ABNORMAL ECG Since PREVIOUS TRACING , no significant change noted PREVIOUS TRACIN11/22/2013 23.28 DOCTOR: Usha Anne Interpretating Date/Time 11/06/2017 16:09:13
--- NOTE | 2017-11-06 16:11 | EKG ---
Date Performed: 11/04/2017 Time Performed: 14:49:15 PTAGE: 67 years EKG: Sinus rhythm LOW QRS VOLTAGE IN EXTREMITY LEADS NONSPECIFIC T-WAVE ABNORMALITY BORDERLINE ECG Since PREVIOUS TRACING , no significant change noted PREVIOUS TRACIN11/04/2017 13.13 DOCTOR: Usha Anne Interpretating Date/Time 11/06/2017 16:10:04
--- NOTE | 2017-11-06 16:11 | EKG ---
Date Performed: 11/04/2017 Time Performed: 17:23:31 PTAGE: 67 years EKG: Sinus rhythm WITH SINUS ARRHYTHMIA LOW QRS VOLTAGE IN PRECORDIAL LEADS BORDERLINE ECG Since PREVIOUS TRACING , no significant change noted PREVIOUS TRACIN11/04/2017 14.49 DOCTOR: Usha Anne Interpretating Date/Time 11/06/2017 16:10:16
[2017-11-06] MEDS: ATORVASTATIN 40 MG TAB PO SCH (21:35)
[2017-11-06] MEDS: SODIUM CHLOR 0.9% 1000 ML INJ 1,000 ML IV SCH (22:49)
[2017-11-07] VITALS (25 sets, daily range): BP systolic 115–131; BP diastolic 50–76; PULSE 62–92; RESP 16–18; TEMP 97.8–98.7; O2SAT 95–98
[2017-11-07] MEDS: SODIUM CHLOR 0.9% 1000 ML INJ 1,000 ML IV SCH ×2 (03:08→08:49)
[2017-11-07 06:35] LABS: AUTOMATED NEUTROPHIL # 7.1 TH/MM3 (1.8-7.7); BASOPHIL % 0.1 % (0.0-2.0); HEMATOCRIT 31.1 % (35.0-46.0); HEMOGLOBIN 10.5 GM/DL (11.6-15.3); LYMPH % 10.8 % (9.0-44.0); LYMPHOCYTE # 0.9 TH/MM3 (1.0-4.8); MEAN CELL VOLUME 82.2 FL (80.0-100.0); MEAN CORPUSCULAR HEMOGLOBIN 27.8 PG (27.0-34.0); MEAN CORPUSCULAR HGB CONC 33.9 % (32.0-36.0); MEAN PLATELET VOLUME 7.7 FL (7.0-11.0); MONO % 2.4 % (0.0-8.0); MONOCYTE # 0.2 TH/MM3 (0-0.9); NEUT % 86.7 % (16.0-70.0); PLATELET COUNT 379 TH/MM3 (150-450); RED BLOOD COUNT 3.78 MIL/MM3 (4.00-5.30); RED CELL DISTRIBUTION WIDTH 15.9 % (11.6-17.2); WHITE BLOOD COUNT 8.2 TH/MM3 (4.0-11.0)
[2017-11-07] MEDS: NITROGLYCERIN 2% OINT 1 GM PACKET TOPICAL SCH (06:45)
[2017-11-07] MEDS ORDERED: predniSONE 20 MG TAB PO ONE (07:00)
[2017-11-07 07:02] LABS: BICARBONATE 23.1 MEQ/L (21.0-32.0); CALCIUM 9.7 MG/DL (8.5-10.1); CREATININE 1.24 MG/DL (0.50-1.00)
[2017-11-07] MEDS: INSULIN ASPART SUPPLEMENTAL SCALE SQ SCH ×2 (08:00→12:00)
[2017-11-07] MEDS: SODIUM CHLORIDE 0.9% FLUSH 10 ML FLUSH IV FLUSH SCH (09:00)
[2017-11-07] MEDS: HEPARIN SODIUM - SQ 10,000 UNITS/ML VIAL SQ SCH (09:00)
[2017-11-07] MEDS ORDERED: NITROGLYCERIN INJ 5 ML ONE (10:00)
[2017-11-07] MEDS ORDERED: HEPARIN-NS/PF FLUSH BAG 1,000 ML IV FLUSH ONE (10:00)
[2017-11-07] MEDS ORDERED: MIDAZOLAM HCL 2 MG/2 ML VIAL ONE (10:00)
[2017-11-07] MEDS ORDERED: SODIUM CHLOR 0.9% 1000 ML INJ 1,000 ML IV SCH (11:03)
--- NOTE | 2017-11-07 11:12 | MA ---
cc: Khris Crook MD PROCEDURE PERFORMED: Left heart catheterization, left ventriculography, coronary angiography, right femoral angiography with Angio-Seal placement. DESCRIPTION OF PROCEDURE: Patient was brought to the cardiac laboratory development technician in fasting state. She received 1 mg of Versed. Using 1% lidocaine for local anesthesia, 6.5 [place] sheath was inserted in the right femoral artery. Left ventricular pressure was then recorded using a pigtail catheter, followed by left ventriculography on pullback. Coronary angiography was completed using a left 4 Becky for the left coronary artery and a 3DRC for the right coronary artery. Angiography was then obtained of the right femoral artery via the sheath, followed by an uncomplicated Angio-Seal placement. There were no complications. FINDINGS: 1. Hemodynamics: Left ventricular pressure is 138/5 with an end-diastolic pressure of 14. Aortic pressure is 149/52 with a mean of 101. There was no gradient during pullback from the left ventricle to the aorta. 2. Left ventriculography: Left ventriculography shows a symmetrically kath left ventricle with an estimated ejection fraction of 65% and no mitral regurgitation. There is no coronary artery calcification seen either. 3. Coronary angiography: Coronary circulation is right dominant. All 3 coronary arteries including the ramus intermedius branch appear smooth and normal appearing. There are no irregularities or stenosis seen anywhere in her coronary system. RECOMMENDATIONS: Pursue noncardiac sources of symptoms. This is now her second normal heart cath. It is likely she will never need a heart cath the rest of her life. MD LAKE Feliciano/MONTY , 11:01 AM , 11:11 AM
[2017-11-07] MEDS ORDERED: MISC INFORMATION XX ONE (11:15)
[2017-11-07] MEDS ORDERED: SODIUM CHLORIDE 0.9% FLUSH 10 ML FLUSH IV FLUSH PRN (11:15)
[2017-11-07] MEDS ORDERED: ONDANSETRON HCL 4 MG/2 ML VIAL IV PUSH PRN (11:15)
[2017-11-07] MEDS ORDERED: BACITRACIN OINT 0.9 GM PKT TOP ONE (11:15)
--- NOTE | 2017-11-07 11:18 | CATHPROC ---
[employer] HIS Report Study Information Study Number Admission Scheduled Start Study Start [id number] Nov 04 2017 2:28PM 11/07/2017 Nov 07 2017 9:59AM Study Type [place] Service Left/Possible PCI Cardiac Catheterization Admit Source Facility Department Emergency department [facility] - Juvenile Counselor Physician and Clinical Staff Initial Khris Trinidad Home Staging Specialist Shayna Willson,RN Other Riya Chowdary,RT(R) Recorder Nara Putnam,ATTIC BLOWER TECH2 Scrub Agnieszka Zeng ,RT(R) Procedures Performed Procedure Location (Site) Vessel Name Angiogram LV LV Ventricle Coronary Angiograms LCA Left Coronary Coronary Angiograms RCA Right Coronary Equipment Time Industrial Yard Brake Coupler Description Size Mfg Part Number Used/Scraped TRANSDUCER, TRPonfacAVE [id number] 10:00 VELIZ VERGARA * Used W/STOCKCOCK *[id number] *[id number] *[id number] PIGTAIL ANG. 145 INFINITI [id number] CATHETER *[id number] 10:57 [employer]/[facility] ANGIOSEAL, FR6 VIP FR 6 Used *[id number] 10:00 [employer] INDUSTRIES PACK, CCL CUSTOM * Used *[id number] 10:00 [employer] PACER PEN, SKIN DUAL W/ RULER * Used *[id number] 10:00 [employer] SHEATH, FR6.5 PRELUDE 11CM FR 6.5 038ACT Used *[id number] 10:00 [employer] WIRE, 3MMJ .035 180CM 180CM Used *[id number] 10:00 NAMIC MANIFOLD, 4 PORT * Used *[id number] 10:47 NAMIC TUBING, HIGH PRESSURE 20" 20" Used *[id number] 10:00 [employer] OMNIPAQUE, 350 MG, 100ML 100ML [id number] Used 10:45 [employer] OMNIPAQUE, 350 MG, 50ML 50ML [id number] Used [id number] 10:00 [facility] BLANKET,WARM AIR CCL * Used *[id number] History: Current Medications Medication Dosage/Unit Route Frequency Last Date/Time Taken LIPITOR PLAVIX Glucophage History: Allergies Allergy Reaction iohexol FACIAL SWELLING diatrizoate meglumine FACIAL SWELLING gadoteridol FACIAL SWELLING gadodiamide FACIAL SWELLING iodixanol FACIAL SWELLING levofloxacin SEVERE FLUSHING gadobenic acid FACIAL SWELLING History: Risk Factors Family History of Hypertension Dyslipidemia Previous [place] Previous Heart Failure Premature CAD Yes Yes Yes No No Prior Valve Prior PCI Prior CABG Surgery No No No Cerebrovascular Peripheral Artery Chronic Lung On Dialysis Diabetes Diabetes Therapy Disease Disease Disease No Yes No No Yes Oral History: Symptoms/Diagnosis Selection Items Chest pain SOB History: Stress Tests Stress or Imaging Studies Performed Yes Standard Exercise Stress Test No Stress Echo No Stress Test SPECT Stress Test SPECT Result Yes Positive Cardiac CTA Coronary Calcium Score No No History: Other Disease Selection Items Gerd Labs Hgb (g/dl) Hct (%) WBC (l/cumm) Platelets (thousands) 11.60-17.00 35.00-51.00 4.00-11.00 150.00-450.00 10.5 31.6 8.2 379 Glucose (mg/dl) BUN (mg/dl) Creatinine (mg/dl) BUN:Creatinine (1:x) 74.00-106.00 7.00-18.00 0.50-1.30 10.00-20.00 175 28 1.2 23.3 Na (meq/l) K (meq/l) Cl (meq/l) CO2 (mmol/L) Ca (mg/dl) 136.00-145.00 3.50-5.10 98.00-107.00 21.00-32.00 8.50-10.10 139 4.4 107 23.1 9.7 PT (sec) PTT (sec) INR (PTT:PT) 9.80-11.60 24.30-30.10 0.90-1.10 9.8 24.1 1 Troponin I (ng/ml) CPK (u/l) 0.02-0.05 26.00-308.00 0.02 96 Medication Medication Total Dose (Bolus/Oral) Medication Total Dosage/Unit 1% XYLOCAINE 20 mL VERSED 1 mg Medications (Bolus/Oral) Medication Time Given Dosage/Unit Administered By Reason VERSED 11/07/2017 10:39:15 AM 1 mg Shayna Willson 1 mg VERSED given in lab by Shayna Willson RN in Left Antecubital via Peripheral IV. Ordered by Khris Terry. 1% XYLOCAINE 11/07/2017 10:41:48 AM 20 mL Khris Crook 20 mL 1% XYLOCAINE given in lab by Khris Crook in Right Groin via Subcutaneous. Ordered by Khris Crook. Medication (Drip) Medication Time Given Dosage/Unit Concentration/Unit Diluent (ml) Solutio n IV Solutions 11/07/2017 10:01:33 AM 0 mL (IV) 1000 NaCl .9 Patient arrived on IV Solutions in Left Antecubital via Peripheral IV. Pump/Drip Flow = 100 ml/hr usi ng NaCl .9. Initial Case Assessment Cardiovascular HR Rhythm NIBP Chest Pain 65 sr 124/65 0 Circulatory - Right Pulses Dorsalis Pedis Femoral 3 3 Scale (0,1,2,3,4,d) Circulatory - Left Pulses Dorsalis Pedis Femoral 3 3 Scale (0,1,2,3,4,d) Neurological State Oriented to time-place- Alert Moves all extremities person Respiration - General Respiration Rate SpO2 (%) (B/min) 14 98 Final Case Assessment Cardiovascular HR Rhythm NIBP Chest Pain 73 sr 122/65 0 Circulatory - Right Pulses Dorsalis Pedis Femoral 3 3 Scale (0,1,2,3,4,d) Circulatory - Left Pulses Dorsalis Pedis Femoral 3 3 Scale (0,1,2,3,4,d) Neurological State Oriented to time-place- Alert Moves all extremities person Respiration - General Respiration Rate SpO2 (%) (B/min) 18 95 Chronological Log Time Study Chronological Log 9:58:30 Patient arrived via Bed. 9:58:36 Patient Name, D.O.B, / Armband Verified By R.N. 10:00:54 Pre-op and post- op instructions given; patient acknowledges understanding of instructions. 10:00:56 Consent signed by the physician and the patient and verified by the Juvenile Counselor staff. 10:00:57 Verbal Stimulation=2 Physical Stimulation=2 Airway=2 Respiration=2 TOTAL=8. (0=absent, 1=li mited, 2=present) 10:01:02 Presedation assessment performed by Juvenile Counselor RN. 10:01:04 Patient has been NPO for More than 6Hrs. 10:01:05 Skin Breakdown-Generalized skin tears from self scratching 10:01:07 Elvia Prominences Protected 10:01:10 A # 20 IV was noted in the Antecubital (left). Grade = patent 10:01:33 Patient arrived on IV Solutions in Left Antecubital via Peripheral IV. Pump/Drip Flow = 100 ml/hr using NaCl .9. Vitals capture started with the following parameters, Patient=Adult, Interval=5 min, Initial Pr jmgehi=436 mmHg, 10:03:59 Deflation Rate=5 mmHg, Cuff placed on Left Leg 10:04:43 HR=62 bpm, UZYH=102/65 mmhg, SpO2=98.0 %, Resp=8 B/min 10:05:25 History and physical on the chart or being dictated. Assessment: Initial Case, HR=65 BPM, Rhythm=sr, WCLW=350/65 mmhg, Chest Pain=0 Right Pulses: Leon Ped=3, Femoral=3 10:05:26 Left Pulses: Leon Ped=3, Femoral=3 Neurological: State=Alert, Ox3, CHAMBERLAIN Respiration: Resp=14 B/min, SpO2=98 % 10:06:59 Reference ECG taken 10:09:30 HR=62 bpm, ZLGL=985/67 mmhg, SpO2=96.0 %, Resp=20 B/min, Pain=0, Jill=10, Alston=2 10:11:01 Bilateral groins prepped with 2% chlorhexidine, and draped after a 3 minute waiting time. 10:14:33 HR=70 bpm, KIYB=068/70 mmhg, SpO2=98.0 %, Resp=9 B/min 10:18:34 Pressure channel 1 zeroed. 10:19:19 MD paged 10:19:38 HR=71 bpm, KSJN=244/60 mmhg, SpO2=94.0 %, Resp=19 B/min 10:24:35 HR=60 bpm, FXEC=819/63 mmhg, SpO2=94.0 %, Resp=29 B/min 10:29:34 HR=56 bpm, HDHP=927/65 mmhg, SpO2=95.0 %, Resp=23 B/min 10:34:37 HR=60 bpm, RURW=958/64 mmhg, SpO2=94.0 %, Resp=31 B/min 10:35:48 MD arrived. 10:39:15 1 mg VERSED given in lab by Shayna Willson, RUTHANN in Left Antecubital via Peripheral IV. Ord ered by Khris Crook. 10:39:34 HR=68 bpm, PDVK=214/68 mmhg, SpO2=96.0 %, Resp=27 B/min Time Out. Correct patient, correct procedure, correct physician, power injector loaded with con trast with surgical team 10:39:36 present. Time Out Concurred by MD and individual staff in procedure. 10:41:46 Case Start 10:41:48 20 mL 1% XYLOCAINE given in lab by Khris Crook in Right Groin via Subcutaneous. Ordered b y Khris Crook. 10:43:54 Access site was Right Femoral Artery. 10:44:14 A SHEATH, FR6.5 PRELUDE 11CM FR 6.5 was advanced into the Fem Art (right) using the Percuta neous technique. A PIGTAIL ANG. 145 INFINITI CATHETER FR 6 was advanced over a wire. OMNIPAQUE, 350 MG, 50ML 50M L was used 10:44:22 for injections. 10:44:37 HR=75 bpm, TKGL=290/63 mmhg, SpO2=94.0 %, Resp=31 B/min Recorded Pressure: LV, HR=72, Condition=Condition 1 10:45:49 (Left Ventricle) LV 113/4/10 10:46:45 The LV was injected at 8 cc/sec for a total of 32. OMNIPAQUE, 350 MG, 50ML 50ML used. Recorded Pressure: LV, Ao, HR=75, Condition=Condition 1 10:47:39 (Left Ventricle) LV 138/5/14, (Aorta) Ao 149/52/101 10:48:27 Catheter was removed A JL 4.0 INFINITI CATHETER FR 6 was advanced over a wire. OMNIPAQUE, 350 MG, 100ML 100ML was us ed for 10:48:29 injections. 10:49:37 HR=77 bpm, XSUB=657/65 mmhg, SpO2=95 %, Resp=25 B/min 10:50:12 The LCA was injected and visualized at various angles. OMNIPAQUE, 350 MG, 100ML 100ML used . 10:51:08 Catheter was removed A 3DRC INFINITI CATHETER FR 6 was advanced over a wire. OMNIPAQUE, 350 MG, 100ML 100ML was used for 10:51:09 injections. 10:53:29 The RCA was injected and visualized at various angles. OMNIPAQUE, 350 MG, 100ML 100ML used . 10:54:10 Catheter was removed 10:54:36 An injection in the Fem Art (right) was made through the SHEATH, FR6.5 PRELUDE 11CM FR 6.5. 10:54:38 HR=79 bpm, NDUH=017/65 mmhg, SpO2=97.0 %, Resp=19 B/min 10:54:48 Right groin access site reprepped with chlorohexadine. 10:56:01 ANGIOSEAL, FR6 VIP FR 6 placement in the Fem Art (right) 10:57:18 Case End 10:57:39 Sterile dressing applied to site 10:57:41 No case complications noted. 10:57:42 Case complication noted. 10:57:43 Cine recording checked. 10:57:46 Bedside Report will be given. Assessment: Final Case, HR=73 BPM, Rhythm=sr, CYHX=603/65 mmhg, Chest Pain=0 Right Pulses: Leon Ped=3, Femoral=3 10:57:50 Left Pulses: Leon Ped=3, Femoral=3 Neurological: State=Alert, Ox3, CHAMBERLAIN Respiration: Resp=18 B/min, SpO2=95 % 10:59:39 HR=76 bpm, UYGH=506/68 mmhg, SpO2=95.0 %, Resp=26 B/min 11:01:38 Vitals capture stopped. 11:05:14 Patient moved to bed 11:07:05 Patient transported to [facility] End Study - Contrast Media Used In Study Contrast Total Opened (mL) Total Used (mL) Total Wasted (mL) Omnipaque 50 50 0 End Study - Maximum Contrast Load Max Contrast Load (mL) 334.7 End Study - Radiation Exposure Fluoro Time (minutes) 1.9 End Study - Sheaths Sheaths Pulled By Sheath Hold Time (min) Khris Crook End Study - Patient Disposition Complications Transferred To Interventional Outcome No Telemetry Bed No attempt made
[2017-11-07] MEDS: ASPIRIN 325 MG TAB PO SCH (12:28)
[2017-11-07] MEDS: LISINOPRIL 20 MG TAB PO SCH (12:28)
[2017-11-07] MEDS: CALCIUM CARBONATE 500 MG CHEWABLE TAB CHEW SCH (12:28)
[2017-11-07] MEDS: CLOPIDOGREL 75 MG TAB PO SCH (12:28)
[2017-11-07] MEDS: CARVEDILOL 3.125 MG TAB PO SCH (12:28)
[2017-11-07] MEDS: ATORVASTATIN 40 MG TAB PO SCH (12:29)
--- NOTE | 2017-11-07 14:46 | HHI.DCPOC ---
Discharge Care Plan Diagnosis: (1) Atypical chest pain Goals to Promote Your Health * To prevent worsening of your condition and complications * To maintain your health at the optimal level Directions to Meet Your Goals Take your medications as prescribed Follow your dietary instruction Follow activity as directed Keep your appointments as scheduled Take your immunizations and boosters as scheduled If your symptoms worsen call your PCP, if no PCP go to Urgent Care Center or Emergency Room Smoking is Dangerous to Your Health. Avoid second hand smoke Call the 24-hour hour crisis hotline for domestic abuse at Keyla Liu MD Nov 07, 2017 14:46
--- NOTE | 2017-11-07 14:47 | HHI.DS ---
Discharge Summary Admission Date Nov 04, 2017 at 14:28 Discharge Date: Nov 07, 2017 Admitting Diagnosis Chest Pain (1) Atypical chest pain ICD Code: R07.89 - Other chest pain Diagnosis: Principal (2) Anxiety ICD Code: F41.9 - Anxiety disorder, unspecified Diagnosis: Principal Procedures see hospital course Brief History - From Admission 67-year-old female with known history of hypertension, irregular heart rate, hyperlipidemia, diabetes, compression fractures, who presented to hospital with multiple symptoms. She states that for the last week she's been experiencing at least 2 times a day a chest heaviness which she describes as a 5 /10 on a pain scale. It happens at rest and during exertion. And resolved on its own after a couple minutes. There is associated shortness of breath, dyspnea, diaphoresis, lightheadedness. Patient denies any nausea, vomiting, dizziness. Patient does have history of cardiac workup 10 years ago where she did undergo a stress test. She has not had any workup recently. Patient also was experiencing right calf pain whenever she is standing up and walking. When she sits down the pain does go away. Ultrasound performed which was unremarkable. Patient also admits experiencing cough with green phlegm production over the last day. Denies any fever, chills, runny nose, sore throat. Patient had workup done emergency department and was unremarkable. Is recommended by the ER physician that the patient be observed in the chest pain center for her chest discomfort. This was explained to the patient and she is in agreement. CBC/BMP: 11/07/17 0522 11/07/17 0522 Significant Findings Laboratory Tests Test 11/04/17 17:27 11/07/17 05:22 Troponin I LESS THAN 0.02 NG/ML Red Blood Count 3.78 MIL/MM3 (4.00-5.30) Hemoglobin 10.5 GM/DL (11.6-15.3) Hematocrit 31.1 % (35.0-46.0) Neutrophils (%) (Auto) 86.7 % (16.0-70.0) Lymphocytes # (Auto) 0.9 TH/MM3 (1.0-4.8) Blood Urea Nitrogen 28 MG/DL (7-18) Creatinine 1.24 MG/DL (0.50-1.00) Random Glucose 175 MG/DL (74-106) Estimat Glomerular Filtration Rate 43 ML/MIN (>89) Imaging Last Impressions Myocardial Perfusion Scan [facility] 11/05/17 0600 Signed Impressions: Service Date/Time: Sunday, November 05, 2017 08:55 - CONCLUSION: Minimal redistribution, borderline significant high septal region suggestive of ischemia. RISK CATEGORY: Low (<1%% Annual Mortality Rate) Caesar Jacobs MD FACR Lower Extremity Ultrasound 11/04/17 1152 Signed Impressions: Service Date/Time: Saturday, November 04, 2017 12:18 - CONCLUSION: Normal examination. Michael Rios MD Chest X-Ray 11/04/17 2032 Signed Impressions: Service Date/Time: Saturday, November 04, 2017 11:59 - CONCLUSION: Cardiomegaly with probable mild failure Caesar Jacobs MD FACR PE at Discharge GENERAL: in NAD CARDIOVASCULAR: Regular rate and rhythm without murmurs, gallops, or rubs. RESPIRATORY: Breath sounds equal bilaterally. No accessory muscle use. GASTROINTESTINAL: Abdomen soft, non-tender, nondistended. MUSCULOSKELETAL: No cyanosis, or edema. BACK: Nontender without obvious deformity. No CVA tenderness. Pt update on day of discharge Follow-up for atypical chest pain Patient seen after cardiac catheterization which patient had a clean cath. I asked patient if she has an anxiety or any GI problems. Patient stated that lately she has been having a lot of stress and anxiety because she now has to take care of her ex-. She said that her ex- has seizures and that his parents will not take care of him anymore. She stated that she is only person that is willing to take care of her and that is causing her a lot of anxiety. Otherwise she denies any chest pain, palpitation, lightheadedness dizziness or shortness of breathing at the moment. Discussed case with patient's nurse [facility] Course 67-year-old female who presented to hospital with a one-week history of 2 times a day chest discomfort with associated shortness of breath, diaphoresis, lightheadedness, claudication Atypical chest pain Myocardial perfusion study was performed which did show minimal redistribution defects with possible ischemia. Patient was treated empirically with aspirin, beta-lashell and nitroglycerin. She had a cardiac catheterization done at 11/07/2017 in which the cath was clean. No coronary artery disease. Patient was cleared by surgical consultant for discharge. Based on patient's interview most likely this is secondary to anxiety. Education given and recommended to follow-up with her primary care physician in regards to her anxiety. Patient stated that she understood. Calf pain, possible claudication Ultrasound does not indicate any acute abnormality or DVT Patient denied any pain on the day of discharge. This may be secondary to anxiety and she may have some somatization. Diabetes Accu-Cheks with sliding scale insulin. Patient stated that she will be compliant with treatment. Patient told to hold metformin for at least 48 hours after cardiac catheterization. Hypertension, hyperlipidemia Continue home medications Pt Condition on Discharge: Good Discharge Disposition: Discharge Home Discharge Time: > 30 minutes Discharge Instructions DIET: Follow Instructions for: Heart Healthy Diet, Diabetic Diet Activities you can perform: See Additionl Instruction Follow up Referrals: PCP Follow-up - 3-5 Days Continued Medications: Atorvastatin (Lipitor) 40 Mg Tab 40 MG PO HS for Cholesterol Management, #30 TAB 0 Refills B-Complex Vitamins (Vitamin B Complex) 1 Tab 1 TAB PO DAILY Clopidogrel (Plavix) 75 Mg Tab 75 MG PO DAILY for Blood Clot Prevention, #30 TAB 0 Refills Oxycodone (Oxycodone) 5 Mg Cap 5 MG PO Q6H PRN for PAIN, CAP 0 Refills Pramipexole (Mirapex) 0.25 Mg Tab 0.25 MG PO BID PRN for RESTLESSNESS, #60 TAB 0 Refills Quinapril (Quinapril) 5 Mg Tab 20 MG PO BID, #60 TAB 0 Refills Discontinued Medications: Metformin (Metformin) 500 Mg Tab 500 MG PO BIDPC for Blood Sugar Management, #60 TAB 0 Refills Keyla Liu MD Nov 07, 2017 14:46
[2017-11-07] MEDS ORDERED: SODIUM CHLORIDE 0.9% FLUSH 10 ML FLUSH IV FLUSH SCH (21:00)
== END 2017-11-07 17:08 | disposition home or self-care (01) ==
LOC: PHED 10:31 → PHEDA 14:28 → PH3B 15:41 → HCIS 11-06 01:53
PROVIDERS: ADMIT Family Medicine; ATTEND Family Medicine
DX: R07.89 Other chest pain (principal); R06.02 Shortness of breath; R06.00 Dyspnea, unspecified; R42 Dizziness and giddiness; R61 Generalized hyperhidrosis; R45.1 Restlessness and agitation; I11.9 Hypertensive heart disease without heart failure; I20.0 Unstable angina; E78.00 Pure hypercholesterolemia, unspecified; I49.9 Cardiac arrhythmia, unspecified; R94.31 Abnormal electrocardiogram [ECG] [EKG]; E11.51 Type 2 diabetes mellitus with diabetic peripheral angiopathy without gangrene; G47.33 Obstructive sleep apnea (adult) (pediatric); R94.39 Abnormal result of other cardiovascular function study; J45.909 Unspecified asthma, uncomplicated; M79.7 Fibromyalgia; K21.9 Gastro-esophageal reflux disease without esophagitis; F41.9 Anxiety disorder, unspecified; F32.9 Major depressive disorder, single episode, unspecified; H91.90 Unspecified hearing loss, unspecified ear; E66.9 Obesity, unspecified; Z86.73 Personal history of transient ischemic attack (TIA), and cerebral infarction without residual deficits; Z79.899 Other long term (current) drug therapy; Z79.84 Long term (current) use of oral hypoglycemic drugs; Z82.49 Family history of ischemic heart disease and other diseases of the circulatory system; Z91.041 Radiographic dye allergy status
CPT/HCPCS: 71045; 78452; 80048; 82550; 82948; 84484; 85025; 85610; 85730; 93005; 93017; 93458; 93971; 96360; 96361; 96372; 99152; 99153; 99285; A9502; C1760; C1769; C1893; G0269; G0378; J1644; J1815; J2250; J2785; J7030; J7512; Q0163; Q9967